=== PATIENT | male | born 1990 | race Caucasian/White ===

== ENCOUNTER 2017-05-06 22:48 | Emergency (ER) | payer OTHER, MEDICAID ==
[2017-05-06] MEDS ORDERED: NS 1,000 ML IV ONE (22:52)
[2017-05-06] MEDS ORDERED: MIDAZOLAM 2 MG/2 ML VIAL ONE (22:52)
[2017-05-06] MEDS ORDERED: MIDAZOLAM 2 MG/2 ML VIAL IVP ONE (22:53)
--- NOTE | 2017-05-06 22:56 | EDPHY ---
H & P HPI/ROS: HPI CHIEF COMPLAINT: Drug intoxication HISTORY OF PRESENT ILLNESS: This patient 23-year-old male who is a Patrice Holloway, unknown medical history unknown surgical history unknown review of systems due to patient's mental state and drug intoxication. Patient presents by EMS after police and EMS make contact with the patient standing naked in the street dancing and hallucinating. EMS made contact with him and found to be acutely agitated, hallucinating dancing naked in the street. Per EMS they report he did marijuana, acid, ecstasy. Past Medical History: Under medical history Past Surgical History: Unknown surgical history Social History: Unknown social history Family History: Unknown ROS REVIEW OF SYSTEMS: Limited due to mental state. Exam Constitutional acutely altered, hallucinating, triage nursing summary reviewed , vital signs reviewed, awake/alert. Eyes normal conjunctivae and sclera, EOMI, PERRLA. HENT normal inspection, atraumatic, moist mucus membranes, no epistaxis, neck supple/ no meningismus, no raccoon eyes. Respiratory clear to auscultation bilaterally, normal breath sounds, no respiratory distress, no wheezing. Cardiovascular rate normal, regular rhythm, no murmur, no edema, distal pulses normal. Gastrointestinal soft, non-tender, no rebound, no guarding, normal bowel sounds, no distension, no pulsatile mass. Genitourinary no CVA tenderness. Musculoskeletal no midline vertebral tenderness, full range of motion, no calf swelling, no tenderness of extremities, no meningismus, good pulses, neurovascularly intact. Skin pink, warm, & dry, no rash, skin atraumatic. Neurologic acutely altered, agitated, does not follow commands, hallucinating Psychiatric hallucinating Heme/Lymph/Immune no lymphadenopathy. Differential Diagnosis: Includes but is not limited to in a particular order drug intoxication, polysubstance abuse, excited delirium, dehydration, electrolyte disturbance Medical Decision Making: Plan for this patient IV establishment 5 mg IV Versed for sedation, full quality assurance monitor, obtain basic blood work, check temperature. Re-evaluation: 1213AM: Patient continues to yell. Agitated. Hallucinating. 5 more mg IV Versed has been ordered. 0700AM: Doing well. NAD. Resting, No long agitated. normal mental status. Source: Patient, Police, EMS Constitutional: Initial Vital Signs Temperature (C) 36.6 C 05/06/17 23:00 Heart Rate 92 05/06/17 23:00 Respiratory Rate 16 05/06/17 23:00 Blood Pressure 149/85 H 05/06/17 23:00 O2 Sat (%) 97 05/06/17 23:00 O2 Delivery Mode Room Air O2 (L/minute) 2 Allergies/Adverse Reactions: Unable to Assess Allergy (Unverified 05/06/17 22:56) Home Medications: Medication Instructions Recorded Unobtainable 05/06/17 Medical Decision Making - Data Points Laboratory Results: Laboratory Results 05/06/17 23:00 05/06/17 23:00 Medications Given: Discontinued Medications Sodium Chloride (Ns) 1,000 mls @ 0 mls/hr IV EDNOW ONE; Wide Open PRN Reason: Protocol Stop: 05/06/17 22:53 Last Admin: 05/06/17 23:23 Dose: 1,000 mls Midazolam HCl (Versed) 5 mg IVP EDNOW ONE Stop: 05/06/17 22:54 Last Admin: 05/06/17 23:10 Dose: 5 mg Midazolam HCl (Versed) 5 mg IVP EDNOW ONE Stop: 05/07/17 00:14 Last Admin: 05/07/17 00:58 Dose: 5 mg Olanzapine (Olanzapine) 5 mg PO ONCE ONE Stop: 05/07/17 04:31 Last Admin: 05/07/17 04:33 Dose: 5 mg Olanzapine (Zyprexa Im Injection) 10 mg IM EDNOW ONE Stop: 05/07/17 05:23 Last Admin: 05/07/17 05:29 Dose: 10 mg Departure - Departure Disposition: Home, Routine, Self-Care Clinical Impression: Polysubstance abuse Condition: Good Instructions: Polysubstance Abuse (ED) Referrals: Patient,NotPresent [Unknown] - As per Instructions
[2017-05-06 23:15] LABS: % IMMATURE GRANULYOCYTES 0.4 % (0.0-1.1); ABSOLUTE IMMATURE GRANULOCYTES 0.03 10^3/uL (0.00-0.10); ADD DIFF? NO; ADD MORPH? NO; ADD SCAN? NO; ATYPICAL LYMPHOCYTE FLAG 0 (0-99); FRAGMENT RBC FLAG 0 (0-99); HEMATOCRIT 44.4 % (40.0-51.0); HEMOGLOBIN 15.7 g/dL (13.7-17.5); LEFT SHIFT FLG 0 (0-99); LIPEMIA HEMOLYSIS FLAG 90 (0-99); MEAN CELL HEMOGLOBIN 31.2 pg (27.9-34.1); MEAN CELL HEMOGLOBIN CONCENTR. 35.4 g/dL (32.4-36.7); MEAN CELL VOLUME 88.3 fL (81.5-99.8); MEAN PLATELET VOLUME 10.6 fL (8.7-11.7); PLATELET CLUMPS FLAG 20 (0-99); PLATELET COUNT 218 10^3/uL (150-400); RED BLOOD CELL COUNT 5.03 10^6/uL (4.40-6.38); RED CELL DISTRIBUTION WIDTH 12.5 % (11.5-15.2)
[2017-05-06 23:27] LABS: ALANINE AMINOTRANSFERASE 44 IU/L (21-72); ALBUMIN 4.5 g/dL (3.5-5.0); ALKALINE PHOSPHATASE 53 IU/L (38-126); ANION GAP 13 mEq/L (8-16); ASPARTATE AMINOTRANSFERASE 28 IU/L (17-59); BILIRUBIN,TOTAL 0.6 mg/dL (0.1-1.4); BILIRUBIN-CONJUGATED 0.3 mg/dL (0.0-0.5); BILIRUBIN-UNCONJUGATED 0.3 mg/dL (0.0-1.1); CARBON DIOXIDE 25 mEq/l (22-31); CHLORIDE 100 mEq/L (97-110); CREATININE 1.3 mg/dL (0.7-1.3); ETHANOL SERUM < 10 mg/dL (0-10); GLOMERULAR FILTRATION RATE > 60; GLUCOSE 95 mg/dL (70-100); POTASSIUM 3.7 mEq/L (3.5-5.2); SODIUM 138 mEq/L (134-144); TOTAL PROTEIN 7.8 g/dL (6.3-8.2)
[2017-05-07 00:12] LABS: COLOR YELLOW; LEUKOCYTE ESTERASE,URINE NEGATIVE (NEGATIVE); NITRITE,URINE NEGATIVE (NEGATIVE)
[2017-05-07] MEDS ORDERED: MIDAZOLAM 2 MG/2 ML VIAL IVP ONE (00:13)
[2017-05-07] MEDS ORDERED: OLANZapine 5 MG TAB PO ONE (04:30)
[2017-05-07] MEDS ORDERED: OLANZapine 10 MG/2 ML VIAL ONE (05:22)
[2017-05-07] MEDS ORDERED: OLANZapine 10 MG/2 ML VIAL IM ONE (05:22)
[2017-05-07 09:57] VITALS: O2SAT 97
[2017-05-07] MEDS ORDERED: LORazepam 1 MG TAB PO ONE (13:25)
[2017-05-07 15:19] VITALS: RESP 18; TEMP 98.1
[2017-05-07 15:39] VITALS: BP 128/74; PULSE 70
== END 2017-05-07 15:39 | disposition home or self-care (01) ==
LOC: EDBD 22:48
DX: F19.10 Other psychoactive substance abuse, uncomplicated (principal); E86.9 Volume depletion, unspecified
CPT/HCPCS: 80305; 96374; G0480; J2250